=== PATIENT | female | born 1960 | race Caucasian/White ===

== ENCOUNTER → 2019-09-26 | Outpatient (CLI) | payer BC ==
[~2019-09-26] MED LIST: ATEN25TA PO; CBD TINCTURE PO; ESCI5TAB7 PO; FENT1PAT77 TD; FLUC150T2 PO; HALO15OI4 TP; HYDR15SO3 PO; MELO7.5T5 PO; METH5TAB12 PO; ONDA4TAB13 PO; PROCHLORPER PO; PROT5TAB PO; SENN1TAB94 PO; SIMV20TA3 PO; SIMV5TAB14 PO; SUCR1ORA11 PO; [UNRECOGNIZED DRUG - OTHER] SL; potassium PO
== END | disposition home or self-care (01) ==
LOC: RAD 07:25
PROVIDERS: ATTEND Thoracic Surgery (Cardiothoracic Vascular Surgery)
DX: R11.2 Nausea with vomiting, unspecified (principal); R10.9 Unspecified abdominal pain; Z90.49 Acquired absence of other specified parts of digestive tract
CPT/HCPCS: 74245

== ENCOUNTER 2019-10-01 05:44 | Day surgery (SDC) | payer BC ==
[~2019-10-01] VITALS: Ht 160 cm; Wt 74.0 kg
[~2019-10-01 05:44] MED LIST changes: -CBD TINCTURE PO; -FENT1PAT77 TD; -PROCHLORPER PO; -[UNRECOGNIZED DRUG - OTHER] SL
[2019-10-01] MEDS ORDERED: LACTATED RINGERS 1,000 ML IV SCH (06:10)
[2019-10-01] MEDS ORDERED: LIDOCAINE-MPF 1%, 2ML INFIL ONE (06:30)
[2019-10-01 06:31] VITALS: BP 113/78
[2019-10-01] MEDS ORDERED: PROPOFOL 10 MG/ML, 20ML ONE ×2 (06:48)
[2019-10-01] MEDS ORDERED: FENT1PAT77 TD (06:54)
[2019-10-01] MEDS ORDERED: [UNRECOGNIZED DRUG - OTHER] SL (06:54)
[2019-10-01] MEDS ORDERED: CBD TINCTURE PO (06:54)
[2019-10-01] MEDS ORDERED: PROCHLORPER PO (06:54)
[2019-10-01] MEDS ORDERED: MIDAZOLAM 1 MG/ML, 2ML ONE (07:02)
== END 2019-10-01 08:55 | disposition home or self-care (01) ==
LOC: OUT 05:44
PROVIDERS: ATTEND Thoracic Surgery (Cardiothoracic Vascular Surgery)
DX: K91.89 Other postprocedural complications and disorders of digestive system (principal); E78.5 Hyperlipidemia, unspecified; I10 Essential (primary) hypertension; G47.33 Obstructive sleep apnea (adult) (pediatric); Z79.899 Other long term (current) drug therapy; Z87.891 Personal history of nicotine dependence; Z85.01 Personal history of malignant neoplasm of esophagus; Z90.49 Acquired absence of other specified parts of digestive tract; Z98.890 Other specified postprocedural states; Z80.42 Family history of malignant neoplasm of prostate; Z83.6 Family history of other diseases of the respiratory system
CPT/HCPCS: 43249; C1725; J2250; J2704; J7120

== ENCOUNTER 2020-04-22 11:01 | Day surgery (SDC) | payer BC ==
[~2020-04-22] VITALS: Ht 160 cm; Wt 72.6 kg
[~2020-04-22 11:01] MED LIST changes: +CBD TINCTURE PO; +CETI10TA26 PO; +FAMO20TA7 PO; +FENT1PAT77 TD; +MAGN400T36 PO; +METH20TA5 PO; +METO5TAB57 PO; +PROC10TA78 PO; +PROCHLORPER PO; +SIMV20TA19 PO; -SIMV20TA3 PO; -SUCR1ORA11 PO; +SUCR1ORA14 PO; +[UNRECOGNIZED DRUG - OTHER] SL
[2020-04-22 11:25] VITALS: BP 114/80
[2020-04-22] MEDS ORDERED: LACTATED RINGERS 1,000 ML IV SCH (11:29)
[2020-04-22] MEDS ORDERED: CHLORHEXIDINE 15 ML UDC MM ONE (11:30)
[2020-04-22] MEDS ORDERED: TRIAMCINOLONE ACETONIDE 40 MG/ML, 1ML ONE (12:25)
[2020-04-22] MEDS ORDERED: PROPOFOL 50 ML ONE (12:31)
[2020-04-22] MEDS ORDERED: PROPOFOL 10 MG/ML, 20ML ONE (12:49)
[2020-04-22] MEDS ORDERED: MEPERIDINE/PF 25MG/0.5ML IVPush PRN (13:00)
[2020-04-22] MEDS ORDERED: PROMETHAZINE 25 MG/ML, 1ML IVPush PRN (13:00)
[2020-04-22] MEDS ORDERED: OXYcodone 5 MG/5 ML ORAL.SOL UDC PO PRN (13:00)
[2020-04-22] MEDS ORDERED: DIAZEPAM 5 MG/ML, 2ML IVPush PRN (13:00)
[2020-04-22] MEDS ORDERED: LABETALOL 5MG/ML, 20ML IV PRN (13:00)
[2020-04-22] MEDS ORDERED: EPHEDRINE 50 MG/ML, 1ML IVPush PRN (13:00)
[2020-04-22] MEDS ORDERED: morphine SULFATE 10 MG/ML, 1ML IVPush PRN (13:00)
[2020-04-22] MEDS ORDERED: FENTANYL PF 100 MCG/2ML IV PRN (13:00)
[2020-04-22] MEDS ORDERED: ONDANSETRON 2MG/ML, 2ML IVPush PRN (13:00)
[2020-04-22] MEDS ORDERED: EPHEDRINE 50 MG/ML, 1ML IM PRN (13:00)
[2020-04-22] MEDS ORDERED: DIPHENHYDRAMINE 50 MG/ML, 1ML IVPush PRN (13:00)
== END 2020-04-22 14:45 | disposition home or self-care (01) ==
LOC: OUT 11:01
PROVIDERS: ATTEND Internal Medicine Gastroenterology
DX: K22.2 Esophageal obstruction (principal); Z11.59 Encounter for screening for other viral diseases; Z85.01 Personal history of malignant neoplasm of esophagus; Z90.49 Acquired absence of other specified parts of digestive tract
CPT/HCPCS: 36415; 43236; 43242; 43249; 87635; 88305; 88341; 88342; 93005; C1725; J2704; J3301; J7120